=== PATIENT | female | born 1995 | race Caucasian/White ===

== ENCOUNTER 2023-06-04 11:41 | Emergency (ER) | payer OTHER ==
[~2023-06-04] VITALS: Ht 162.6 cm; Wt 56.2 kg
[2023-06-04 11:55] VITALS: BP 129/80
[2023-06-04] MEDS ORDERED: Prednisone20 MG PO (11:56)
[2023-06-04] MEDS ORDERED: AMPDEX5 PO (11:57)
[2023-06-04] MEDS ORDERED: CEPH500 PO (12:33)
== END 2023-06-04 12:40 | disposition home or self-care (01) ==
LOC: ER 11:41
DX: L08.9 Local infection of the skin and subcutaneous tissue, unspecified (principal); J45.909 Unspecified asthma, uncomplicated; Z79.899 Other long term (current) drug therapy
CPT/HCPCS: 99282; A9270

== ENCOUNTER → 2023-06-25 | Outpatient (CLI) | payer OTHER ==
[~2023-06-25] MED LIST: AMPDEX5 PO; CEPH500 PO; Prednisone20 MG PO
== END ==
LOC: LAB 15:59 → LAB SHORT 15:59
PROVIDERS: Family Medicine
DX: Z01.419 Encounter for gynecological examination (general) (routine) without abnormal findings (principal)
CPT/HCPCS: G0145

== ENCOUNTER 2023-08-10 20:42 | Emergency (ER) | payer OTHER ==
[~2023-08-10] VITALS: Ht 162.6 cm; Wt 56.7 kg
[2023-08-10 20:47] VITALS: BP 150/99
== END 2023-08-10 22:15 | disposition home or self-care (01) ==
LOC: ER 20:42
DX: F41.0 Panic disorder [episodic paroxysmal anxiety] (principal); Z79.899 Other long term (current) drug therapy
CPT/HCPCS: 99283

== ENCOUNTER → 2024-02-18 | Outpatient (CLI) | payer OTHER ==
[2024-02-18 11:11] LABS: BASOPHILS ABSOLUTE AUTO 0.04 K/mm3 (0.00-0.23); BASOPHILS PERCENT AUTO 1 % (0-2); EOSINOPHILS ABSOLUTE AUTO 0.16 K/mm3 (0.00-0.68); EOSINOPHILS PERCENT AUTO 2 % (0-6); Hematocrit 38.6 % (33.0-51.0); IMMATURE GRAN ABSOLUTE AUTO 0.01 K/mm3 (0.00-0.10); IMMATURE GRAN PERCENT AUTO 0 % (0-1); LYMPHOCYTES ABSOLUTE AUTO 2.14 K/mm3 (0.84-5.20); LYMPHOCYTES PERCENT AUTO 30 % (21-46); MONOCYTES ABSOLUTE AUTO 0.77 K/mm3 (0.16-1.47); MONOCYTES PERCENT AUTO 11 % (4-13); Mean Corpuscular HGB 30.5 pg (26.0-34.0); Mean Corpuscular HGB Conc 33.7 g/dL (31.5-36.5); Mean Corpuscular Volume 91 fL (80-100); NEUTROPHILS ABSOLUTE AUTO 4.08 K/mm3 (1.96-9.15); NEUTROPHILS PERCENT AUTO 57 % (41-73); RDW Coefficient Variation 12.2 % (11.7-14.2); RDW Standard Deviation 39.8 fL (35.1-46.3); Red Blood Cell Count 4.26 M/mm3 (3.80-5.20)
[2024-02-18 11:13] LABS: Platelet Count 271 K/mm3 (150-400)
[2024-02-18 11:26] LABS: Albumin, Blood 3.8 g/dL (3.4-5.0); Albumin/Globulin Ratio 0.9 (0.8-1.8); Bilirubin, Total 0.4 mg/dL (0.1-1.0); Bun/Creatinine Ratio 16.7 (12.0-20.0); Creatinine, Blood 0.66 mg/dL (0.40-1.00); Globulin, Blood 4.3 g/dL (2.2-4.0); Potassium, Blood 3.9 mmol/L (3.5-5.5); Thyroid Stimulating Hormone 0.932 uIU/mL (0.360-4.800); Total Protein, Blood 8.1 g/dL (6.4-8.2)
== END | disposition home or self-care (01) ==
LOC: LAB 11:03 → LAB SHORT 11:03
PROVIDERS: Family Medicine
DX: N92.6 Irregular menstruation, unspecified (principal); R42 Dizziness and giddiness
CPT/HCPCS: 80053; 84443; 84702; 85025